=== PATIENT | male | born 1960 | race Caucasian/White ===

== ENCOUNTER 2020-07-21 07:42 | Emergency (ER) | payer OTHER, MEDICAID ==
[~2020-07-21] VITALS: Ht 177.8 cm; Wt 101.2 kg
[2020-07-21] MEDS ORDERED: ACETAMINOPHEN325 M1 PO (07:49)
[2020-07-21] MEDS ORDERED: NORVASC5 M1 PO (07:49)
[2020-07-21] MEDS ORDERED: BUSPIRONE HCL5 MG PO (07:50)
[2020-07-21] MEDS ORDERED: LIPITOR80 MG PO (07:50)
[2020-07-21] MEDS ORDERED: ASPIRIN EC81 M1 PO (07:50)
[2020-07-21] MEDS ORDERED: CARVEDILOL12.5 MG PO (07:50)
[2020-07-21] MEDS ORDERED: PLAVIX 75 MG TA75 MG PO (07:51)
[2020-07-21] MEDS ORDERED: VITAMIN D3100 MCG PO (07:51)
[2020-07-21] MEDS ORDERED: COLACE100 MG PO (07:52)
[2020-07-21] MEDS ORDERED: NEURONTIN 400400 M1 PO (07:53)
[2020-07-21] MEDS ORDERED: DUTASTERIDE0.5 MG PO (07:53)
[2020-07-21] MEDS ORDERED: LANTUS SUBQ ×2 (07:54→07:55)
[2020-07-21] MEDS ORDERED: GLYCOLAX119 GM PO (07:54)
[2020-07-21] MEDS ORDERED: ISOSORBIDE MONO10 MG PO (07:54)
[2020-07-21] MEDS ORDERED: METHYLPHENIDATE10 MG PO (07:55)
[2020-07-21] MEDS ORDERED: NITROSTAT0.4 M1 SUBLING (07:56)
[2020-07-21] MEDS ORDERED: K-DUR 20 MEQ T20 MEQ PO (07:56)
[2020-07-21] MEDS ORDERED: PROTONIX40 M2 PO (07:56)
[2020-07-21] MEDS ORDERED: OMEPRAZOLE 20 M20 M1 PO (07:56)
[2020-07-21] MEDS ORDERED: HYTRIN 1 MG CAP1 MG PO (07:57)
[2020-07-21] MEDS ORDERED: SERTRALINE HCL25 M1 PO (07:57)
[2020-07-21] MEDS ORDERED: MIRAPEX1 MG PO (07:57)
[2020-07-21] MEDS ORDERED: VENELEX OINTMEN60 GM TOP (07:58)
[2020-07-21 08:10] LABS: ABSOLUTE EOSINOPHILS 0.2 thou/uL (0.0-0.7); ABSOLUTE LYMPHOCYTES 1.4 thou/uL (0.8-5.3); ABSOLUTE MONOCYTES 0.3 thou/uL (0.0-1.2); ABSOLUTE NEUTROPHILS 2.4 thou/uL (1.6-8.1); EOSINOPHILS 3.9 %; HEMATOCRIT 34.2 % (42.0-52.0); HEMOGLOBIN 11.5 gm/dL (14.0-18.0); MCH 26.3 pg (26.0-34.0); MCHC 33.7 g/dL (28.0-37.0); MONOCYTES 6.8 %; MPV 7.8 fl. (7.2-11.1); NUCLEATED RBCS 0 /100WBC; PLATELET COUNT* 120 thou/uL (150-400); POLYS 56.3 %; RBC 4.39 mil/uL (4.50-6.00); RDW-CV 16.7 % (10.5-14.5); WBC 4.3 thou/uL (4.0-11.0)
[2020-07-21 08:16] LABS: CALCIUM 8.6 mg/dL (8.5-10.1)
[2020-07-21 08:19] LABS: APTT 25.1 Seconds (25.0-31.3); INR 1.1; PROTIME 11.3 Seconds (9.20-11.50)
[2020-07-21 08:40] LABS: CK-MB MASS 1.6 ng/mL (<0.5-3.6); TOTAL BILIRUBIN 0.8 mg/dL (<0.1-1.0); TOTAL PROTEIN 6.1 g/dL (6.4-8.2)
[2020-07-21 10:15] VITALS: BP 101/62
--- NOTE | 2020-07-21 17:39 | EKG ---
[place] [address] ELECTROCARDIOGRAM REPORT Name: DENIA MORRISON [id number] Admission: 07/21/20 Attend Phys: Discharge: 07/21/20 Date of : 62 Date of Service: 07/21/20 0756 Report #: [id number] THIS REPORT FOR: //name// [facility] ED Test Date: 2020-07-21 Test Time: 07:56:42 Pat Name: DENIA MORRISON Department: Patient ID: [id number]- Room: Gender: M Creative Developer: : 1960 Requested By: Tank Gallego Order Number: [id number] MD: Philipp Reyez Measurements Intervals [place] Rate: 99 P: 44 IN: 183 QRS: 17 QRSD: 84 T: 48 QT: 356 QTc: 457 Interpretive Statements Sinus rhythm Consider inferior infarct Posterior infarct, old No previous ECG available for comparison Electronically Signed On 07-21-2020 17:39:33 VASCULAR TECHNOLOGIST SONOGRAPHER by Philipp Reyez [email or web address] <ELECTRONICALLY SIGNED> By: Philipp Reyez MD, [facility] 07/21/20 1739 0756 075 Philipp Reyez MD, FACC /EPI
== END 2020-07-21 10:16 | disposition home or self-care (01) ==
LOC: M.ERS 07:42
PROVIDERS: Family Medicine
DX: R41.82 Altered mental status, unspecified (principal); E11.9 Type 2 diabetes mellitus without complications; Z20.822 Contact with and (suspected) exposure to COVID-19; Z86.73 Personal history of transient ischemic attack (TIA), and cerebral infarction without residual deficits; Z95.0 Presence of cardiac pacemaker; Z79.82 Long term (current) use of aspirin; Z79.899 Other long term (current) drug therapy; Z88.1 Allergy status to other antibiotic agents; Z88.8 Allergy status to other drugs, medicaments and biological substances